=== PATIENT | female | born 1945 | race Caucasian/White ===

== ENCOUNTER 2020-02-13 01:19 | Outpatient (CLI) | payer MEDICARE, OTHER, SELFPAY ==
[2020-02-13 19:09] LABS: SARS-CoV-2 RNA PCR Negative
== END 2020-02-13 01:20 | disposition home or self-care (01) ==
LOC: ANHCOVIDDT 01:20
PROVIDERS: PCP Family Medicine; Visit Provider Otolaryngology
DX: Z01.812 Encounter for preprocedural laboratory examination (principal); Z11.59 Encounter for screening for other viral diseases
CPT/HCPCS: 87635; C9803; U0003

== ENCOUNTER 2020-02-16 01:15 | Day surgery (SDC) | payer MEDICARE, OTHER, SELFPAY ==
[2020-02-11 12:07] VITALS: BMI 27.1
--- NOTE | 2020-02-15 13:03 | WPDANESEPPF ---
Anes - Initial Pre Proc Eval Procedure: Operation Date: 02/16/20 07:30 Proposed Procedures p Ligation Of The Sphenopalatine Artery - Richie Liz MD s Left Maxillary Antrostomy - Richie Liz MD Date/Time: 02/15/20 13:03 Surgeon: Richie Liz MD Pre Op Diagnosis: Epistaxis, chronic sinusitis Patient Data Age: 74 Gender: F Height: 1.63 m Weight: 71.8 kg Allergies Allergy/AdvReac Type Severity Reaction Status Date / Time sulfanilamide Allergy Severe HAD TO Verified 02/16/20 06:20 PUMP MY STOMACH, ON VERGE OF ANAPHYLATIC SHOCK amoxicillin AdvReac Mild Rash Verified 02/16/20 06:40 carvedilol [From Coreg] AdvReac Mild Rash Verified 02/16/20 06:20 Home Medications Medication Instructions Recorded Confirmed Type alprazolam [Xanax] 0.5 mg PRN PRN 02/11/20 02/16/20 History apixaban [Eliquis] 5 mg PO BID 02/11/20 02/16/20 History diltiazem HCl [Cardizem] 120 mg PO QAM 02/11/20 02/16/20 History dronedarone [Multaq] 400 mg BID 02/11/20 02/16/20 History furosemide 20 mg PRN PRN 02/11/20 02/11/20 History methimazole [Tapazole] 5 mg QAM 02/11/20 02/16/20 History Patient hx anesthesia problems: none Family hx anesthesia problems: none [facility] Past Medical History Medical History (Updated 02/15/20 @ 13:03 by Chriss Frank DO) Anxiety Atrial fibrillation Hypertension Surgical History Surgical History (Updated 02/15/20 @ 13:03 by Chriss Frank DO) History of hysterectomy History of thyroidectomy Social History Social History Smoking status: Never smoker Alcohol intake: current Living arrangements: alone Anes - Eval Final PreProcedure Day of Procedure 02/15/20 13:03 Patient weight: overweight Heart: regular rate and rhythm Lungs: clear to auscultation and normal air movement Airway: Mallampati scale class II Neurological: alert and oriented Last oral intake: >/= 8 hours ASA classification: III Emergent: no Anesthetic plan: proceed Anesthesia type and monitoring: general ETT and standard monitoring Informed Consent: The patient's anesthetic plan and its attendant risks and benefits were discussed with the patient/family/POA. Questions were solicited and answers provided to the satisfaction of the patient/family/POA.
--- NOTE | 2020-02-15 17:03 | PM.IMHP ---
H&P: HPI History of Present Illness Date/Time: 02/15/20 17:03 Chief complaint: Epistaxis, chronic sinusitis Narrative: Adrianna Burks is a 74 year old female With recurrent left-sided epistaxis. Most recently she has had several severe bleeds requiring packing with rhino rocket as well as packing with absorbable packing by myself approximately 1 week ago. The patient presents for planned surgical intervention. Reports no new bleeding no new palliative or provoking factors no significant changes in her past medical history. Review of Systems Constitutional: Constitutional: Denies fatigue, Denies fever(s) and Denies lethargy Eyes: Eyes: Denies blurry vision and Denies change in vision ENT: Reports as per HPI Cardiovascular: Cardiovascular: Denies chest pain Respiratory: Respiratory: Denies cough Endocrine: Endocrine: Denies fatigue Hematologic/Lymphatic: Hematologic/Lymphatic: Denies easy bleeding, Denies easy bruising and Denies lymphadenopathy Allergic/Immunologic: Allergic/Immunologic: Denies seasonal rhinorrhea PMFSH Past Medical History Medical History (Updated 02/15/20 @ 13:03 by Chriss Frank DO) Anxiety Atrial fibrillation Hypertension Surgical History Surgical History (Updated 02/15/20 @ 13:03 by Chriss Frank DO) History of hysterectomy History of thyroidectomy Social History Social History Smoking status: Never smoker Alcohol intake: current Meds Home Medications and Allergies Home Medications Medication Instructions Recorded Confirmed Type alprazolam [Xanax] 0.5 mg PRN PRN 02/11/20 02/11/20 History apixaban [Eliquis] 5 mg PO BID 02/11/20 02/11/20 History diltiazem HCl [Cardizem] 120 mg PO QAM 02/11/20 02/11/20 History dronedarone [Multaq] 400 mg BID 02/11/20 02/11/20 History furosemide 20 mg PRN PRN 02/11/20 02/11/20 History methimazole [Tapazole] 5 mg QAM 02/11/20 02/11/20 History Allergies Allergy/AdvReac Type Severity Reaction Status Date / Time sulfanilamide Allergy Unknown Nausea and Verified 02/11/20 12:02 Vomiting carvedilol [From Coreg] AdvReac Nausea and Verified 02/11/20 12:02 Vomiting Exam Const: General: cooperative, healthy appearing, comfortable, well developed and alert HENMT: Head: normal to inspection, normocephalic and atraumatic Ears: hearing grossly normal bilaterally, external ears normal, TM's normal bilaterally and EAC's normal General nose exam: Normal external nose present, Normal nares present, No nasal polyps present, mucous membranes and turbinates abnormal, abnormal septum and Other nasal findings present ( Left side packed with absorbable packing) Face and sinus: normal facial exam Mouth: Yes Normal oral and palatal mucosa present, Yes lip normal, Yes tongue normal, Yes oropharynx normal and Yes moist mucous membranes Teeth and gingiva: dentition normal and gingiva normal Throat: posterior oropharynx normal, tonsils normal and uvula midline Eyes: General: appearance normal, both eyes and all related structures Periorbital: periorbital findings normal Eyelids: eyelids normal Conjunctivae: conjunctivae normal Sclera: sclerae normal Neck: Neck: normal visual inspection, full ROM and no lymphadenopathy Thyroid: thyroid normal Lymphatic: no lymphadenopathy noted Resp: Effort & Inspection: normal respiratory effort and able to speak in complete sentences Cardio: Jugular venous distension: no JVD Neuro: Cranial nerves: Yes CN's II-XII intact bilaterally Assessment and Plan Assessment and plan (1) Epistaxis, recurrent: Code(s): R04.0 - Epistaxis Status: Acute Assessment and Plan: plan is for the OR for left-sided endoscopic maxillary antrostomy as well as sphenopalatine artery ligation. Septoplasty if needed. The patient voiced understanding of the following risks bleeding infection damage to surrounding structures the need
[2020-02-16] VITALS (8 sets, daily range): BP systolic 117–143; BP diastolic 53–80; PULSE 62–69; RESP 12–20; TEMP 36.3–36.8; O2SAT 92–100
[2020-02-16] MEDS: ACETAMINOPHEN 500 MG TABLET 1000 MG PO (06:33)
[2020-02-16] MEDS: LACTATED RINGERS 1,000 ML 30 ML IV CONT ×2 (06:35→09:00)
--- NOTE | 2020-02-16 07:18 | WPDHPUPDATE1 ---
History and Physical Update Update Date/Time: 02/16/20 07:18 History and Physical has been reviewed, including an updated exam of the patient. There are NO changes in the patient's condition. Risks, benefits, and alternatives have been discussed and questions answered. Patient agrees to proceed with procedure.
[2020-02-16] MEDS: LIDO 1%/EPINEPHRINE 1:100,000 20 ML VIAL INFILTRATE (07:28)
[2020-02-16] MEDS: CLINDAMYCIN 600 MG/NS 50 ML 600 MG/50 ML PIGGYBACK 100 MG IVPB (07:29)
[2020-02-16] MEDS: OXYMETAZOLINE HCL 0.05% NAS 15 ML BTL (*BKC) 1 SPRAY NASAL (07:29)
--- NOTE | 2020-02-16 09:43 | PM.PROC ---
Procedure Note - Detailed Date of procedure: 02/16/20 Pre-op diagnosis: Epistaxis, chronic sinusitis right nasal adhesion Post-op diagnosis: same Procedure performed: 1. Endoscopic left maxillary antrostomy 2. Endoscopic left ligation of sphenopalatine artery 3. Right lysis of adhesions Description of procedure: The patient was correctly identified and consent was verified in the preoperative holding area. The patient was then brought to the operating room and a time-out was performed. General anesthesia was induced, and an endotracheal tube was secured in the patient's airway and taped to the left lower lip. The patient was then prepped and draped for the aforementioned procedures. Afrin-soaked pledgets were placed in the bilateral nasal passages. Of note I was unable to place multiple pledgets on the right side. 0 degree endoscope was utilized to examine the bilateral sinonasal passages. A right-sided adhesion was noted and this was lysed with a [place]. The left middle turbinate was medialized and the left inferior turbinate was lateralized this provided access to the left middle meatus. A maxillary antrostomy was performed on the Left to identify the maxillary sinus posterior wall. the antrostomy was performed with a double ball tip probe backbiter and straight through cut. Once the posterior wall of the left maxillary sinus was identified the mucosa from its medial aspect was removed from the bone exposing the [place] ethmoidalis. Just posterior to the [place] ethmoidalis the sphenopalatine artery was observed. This was cauterized with a suction Bovie, endoscopically, at a setting of 25, it was sectioned into demonstrating full cauterization and ligation. A small piece of Surgicel was then placed against the operative site and no bleeding was noted. Edgar splints were then placed bilaterally to prevent further adhesions and sutured anteriorly through the septum with 4 0 nylon suture. The bilateral nasal passages were suctioned free of blood and again hemostasis was noted to be excellent. This marked the end of the procedure and care of the patient was turned over to Anesthesiology. I performed all dictated portions of this procedure. Implants: Edgar splints Anesthesia: GLMA Surgeon: Richie Liz MD Estimated blood loss (mL): 15 Drains: No Packing: No Pathology: none sent Complications: No immediate complications Condition: stable Disposition: PACU
== END 2020-02-16 10:42 | disposition home or self-care (01) ==
PROVIDERS: PCP Family Medicine; Visit Provider Otolaryngology
PROC: (CPT 31256; principal; 2020-02-16 07:30)
PROC: (CPT 31256; 2020-02-16 07:30)
DX: R04.0 Epistaxis (principal); J32.9 Chronic sinusitis, unspecified; I48.91 Unspecified atrial fibrillation; I10 Essential (primary) hypertension; F41.9 Anxiety disorder, unspecified; Z79.01 Long term (current) use of anticoagulants
CPT/HCPCS: 31256; 31241; 31237; A9270; J0330; J1100; J2405; J2704; J3010; J7120